=== PATIENT | female | born 2000 | race Caucasian/White ===

== ENCOUNTER 2020-04-29 09:28 | Emergency (ER) | payer OTHER, SELFPAY ==
--- NOTE | 2020-04-29 09:39 | ED.SKABFB ---
HPI - Skin/Abscess/Foreign Bdy General Chief complaint: Skin/Abscess/Foreign Body Stated complaint: laceration Time Seen by Provider: 04/29/20 09:39 Source: patient and RN notes reviewed History of Present Illness HPI narrative: Patient is a 20-year-old female who presents the urgent care with complaints of a laceration to the forehead. Patient states that she ran into the side of her door last night after getting drunk. Patient denies of any loss of consciousness or any other injuries. Patient has not taken anything [id number] for pain or cleans the wound. No other acute complaints. No acute distress noted. Patient aware of the plan of care. Some parts of this dictation were generated by voice recognition software and may contain typographical and/or grammatical inaccuracies. Related Data Home Medications Medication Instructions Recorded Confirmed No Home Medications 04/29/20 04/29/20 Allergies Allergy/AdvReac Type Severity Reaction Status Date / Time No Known Allergies Allergy Unverified 08/01/17 17:30 Review of Systems Review of Systems: Narrative: CONSTITUTIONAL: Denies fever, chills, or sweats. EYES: Denies visual changes, redness, or discharge. ENT: Denies rhinorrhea, congestion, sore throat, or otalgia. CARDIOVASCULAR: Denies chest pain, palpitations, or edema. RESPIRATORY: Denies cough or dyspnea. GASTROINTESTINAL: Denies abdominal pain, nausea, vomiting, or diarrhea. GENITOURINARY: Denies dysuria or hematuria. SKIN: Reports of a laceration to the forehead MUSCULOSKELETAL: Denies back pain, joint pain, or myalgia. NEUROLOGIC: Denies headache, numbness, or weakness. All other systems reviewed are negative, except as documented in HPI. PMFSH Comments At the time of my signature, I reviewed and agree with the nursing past medical, surgical, social, and family history. There is no relevant family history pertinent to the patient complaint. Exam Narrative: Exam Narrative: GENERAL: This is a well-nourished, well-developed patient, in no apparent distress. HEAD: normocephalic, atraumatic. EYES: PERRL. Sclera clear/white. Vision is grossly intact. EARS: External ears normal NOSE: External nose normal with no obvious nasal discharge, nares without redness, no rhinorrhea. THROAT: Mucous membranes moist NECK: Neck supple SKIN: 2 cm linear laceration to the left side of the forehead. Good texture and turgor. NEURO: awake, alert, and oriented to person, place and time. There were no obvious focal neurologic abnormalities. EXTREMITIES: No clubbing, cyanosis, or edema. Course Vital Signs Vital signs: Vital Signs Temperature 98.6 F 04/29/20 09:40 Pulse Rate 89 04/29/20 09:40 Respiratory Rate 16 04/29/20 09:40 Blood Pressure 117/83 04/29/20 09:40 Pulse Oximetry 100 04/29/20 09:40 Temperature 98.6 F 04/29/20 09:40 Pulse Rate 89 04/29/20 09:40 Respiratory Rate 16 04/29/20 09:40 Blood Pressure 117/83 04/29/20 09:40 Pulse Oximetry 100 04/29/20 09:40 Reviewed Procedures Laceration Laceration 1: Site: face (Forehead) Side (If applicable): left Description: linear Depth: simple, single layer Local Anesthetic: none Pre-repair: irrigated (Technicare and normal saline) ====== Skin Level ====== Skin layer closed with: dermabond and steri strips ====== Subcutaneous Layer ====== ====== Muscle Layer ====== ====== Tendon Layer ====== Dressin cm linear laceration to the left side of the forehead cleansed with Technicare and normal saline and approximated well with Dermabond and 4 Steri-Strips. Patient educated on how to care for the wound. No complications. Procedure successful. Patient tolerated well. MDM - Skin/Abscess/Foreign Bdy MDM Narrative Medical decision making narrative: Advised the patient not to remove the Steri-Strips or the glue. Allow them to fall off on their own. May shower a
[2020-04-29 09:40] VITALS: BP 117/83; PULSE 89; RESP 16; TEMP 37; O2SAT 100
== END 2020-04-29 10:12 | disposition home or self-care (01) ==
PROVIDERS: Emergency Provider Nurse Practitioner Family
DX: S01.81XA Laceration without foreign body of other part of head, initial encounter (principal); W22.8XXA Striking against or struck by other objects, initial encounter
CPT/HCPCS: 12011; 99212; G0463